=== PATIENT | male | born 1995 | race Two or more races ===

== ENCOUNTER 2022-01-24 21:17 | Emergency (ER) | payer OTHER ==
[2022-01-24 21:32] VITALS: BP 135/75; PULSE 75; TEMP 98.3; BMI 29.1
== END 2022-01-24 22:30 | disposition home or self-care (01) ==
LOC: FER 21:17
PROC: 0HQGXZZ Repair Left Hand Skin, External Approach (ICD-10-PCS; principal; 2022-01-24)
DX: S61.217A Laceration without foreign body of left little finger without damage to nail, initial encounter (principal)
CPT/HCPCS: 99283-25

== ENCOUNTER 2022-01-30 14:55 | Emergency (ER) | payer OTHER ==
[2022-01-30 15:43] VITALS: BP 120/68; PULSE 70; TEMP 98; BMI 28.3
== END 2022-01-30 15:43 | disposition home or self-care (01) ==
LOC: FER 14:55
DX: Z48.02 Encounter for removal of sutures (principal)
CPT/HCPCS: 99281-25